=== PATIENT | male | born 1980 | race Caucasian/White ===

== ENCOUNTER → 2018-07-09 | Outpatient (CLI) | payer OTHER ==
--- NOTE | 2018-07-09 16:21 | CONS ---
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 He has no loss in strength or range of motion. Symptoms cannot be elicited on examination. However based on history the patient likely has rotator cuff tendinitis. It is also possible that this pain is coming from the cervical spine. At this time I am recommending a therapeutic and diagnostic injection of the subacromial space. Patient agrees and wishes to proceed with the plan. Plan: Left subacromial steroid injection Physical therapy Meloxicam Follow-up 12 weeks Assessment/Plan (Daily) Left subacromial steroid injection procedure: Risks and benefits of steroid injection reviewed with patient. The risks include infection, failure, pain, swelling, nerve/tendon/ligament damage. The patient verbalized understanding and verbal consent was obtained prior to procedure. The left posterior shoulder was prepped in a sterile fashion with alcohol and betadine the site of injection was confirmed. Posterior approach was used. The skin and capsule was anesthetized with 3mL 1% lidocaine. The left subacromial space was injected with 2mL 1% lidocaine, 2mL 0.25% bupivacaine, 40mg Depo- Medrol. Injection flowed freely. Good hemostasis was achieved and no complications noted. The patient tolerated the procedure well. Limit activity and ice for 24-48 hours Consultation Date/Type/Reason Admit Date/Time Date of Consultation: Jul 09, 2018 Reason for Consultation Left shoulder/arm pain Date/Time of Note DATE: 07/09/18 TIME: 16:14 Hx of Present Illness Is a 37-year-old RHD with a chief complaint of left shoulder pain. The pain began approximately 5 months ago. The patients pain is in the lateral aspect of the left shoulder. Pain is no radiating to the elbow. The pain is rated as a 4/10 and is described as discomfort. Patient denies complaints of numbness or tingling. The pain is exacerbated by overhead activities and reaching and when training for [employer]. There is pain at night when lying on the shoulder. The patient does not complain of weakness. The patient does [] complain of loss of ROM. Pain is not relieved by NSAID's. Patient has been taking ibuprofen on a p.r.n. basis as well as using ice. Duration: 5 months Injury: No specific Physical Therapy: Yes 5 months ago with no Injections: No NSAID's: Ibuprofen as needed Prior surgery: No Neck pain: No Patient denies fever, chills, shortness of breath, chest pain, nausea/vomiting, constipation, diarrhea, numbness, and tingling. Past Medical History Medical History: no pertinent history Past Surgical History Past Surgical Hx: no surgical history Family History Significant Family History: no pertinent family hx Social History Alcohol Use: none Smoking Status: Never smoker Drug Use: none Exam/Review of Systems Exam Vitals Weight: 190 pound Height: 6 foot Temperature: 90.6 Heart Rate: 63 Blood Pressure: 123/71 Respiratory Rate: 12 Exam General Examination: General Appearance Awake, alert, in no acute distress, pleasant and cooperative. Heart regular rhythm. Lungs breathing comfortably, no tachypnea or dyspnea. MUSCULOSKELETAL: Left shoulder Skin is intact. There is no atrophy around the shoulder. NTTP. ----- Active = Passive ROM: FE: 160 Abd: 160 ER: 90 IR: T10 Normal lift off or belly press ----- Muscle Strength Supraspinatus: 5/5 Subscapularis: 5/5 Infraspinatus: 5/5 Teres Minor: 5/5 ----- Negative impingement Negative Sidney's Test Negative drop Sign Negative Speed's Test Negative Yergason's Sign ----- Negative Spurling Test ----- Sensation intact to light touch in a median, ulnar, radial, and axillary distribution. Motor is intact in a median, ulnar, radial, anterior interosseous, and posterior interosseous nerve distribution. Radial and ulnar artery are +2. Wrist extension and flexion are intact. Compartments are soft Imaging Imaging 2 views of the left humerus were obtained and reviewed in clinic. No fracture. No osseous abnormality. Normal humerus x-ray. Glenohumeral joint partially visualized on examination. From what can be visualized the glenohumeral joint appears to be normal. GUERRERO HOGAN MD Jul 09, 2018 16:21
== END | disposition home or self-care (01) ==
LOC: HKI 14:51
PROVIDERS: ATTEND Orthopaedic Surgery Adult Reconstructive Orthopaedic Surgery
DX: M25.512 Pain in left shoulder (principal)
CPT/HCPCS: 20610; 73060; G0463